=== PATIENT | female | born 1995 | race Asian ===

== ENCOUNTER 2020-07-07 18:00 | Emergency (ER) | payer SELFPAY ==
[~2020-07-07] VITALS: Ht 157.5 cm; Wt 56.7 kg
[2020-07-07] MEDS ORDERED: Solu-MEDROL 125mg Inj ONE (18:08)
[2020-07-07] MEDS ORDERED: DiphenhydrAMINE 50mg/ml Inj ONE (18:08)
[2020-07-07] MEDS ORDERED: EPINEPHrine 1mg/1ml Amp ONE (18:08)
[2020-07-07 18:15] VITALS: BP 122/62
[2020-07-07] MEDS ORDERED: EPINEPHrine 1mg/1ml Amp IM ONE (18:15)
[2020-07-07] MEDS ORDERED: Solu-MEDROL 125mg Inj IVP ONE (18:15)
[2020-07-07] MEDS ORDERED: DiphenhydrAMINE 50mg/ml Inj IVP ONE (18:15)
--- NOTE | 2020-07-07 18:15 | NUR ---
ED Nurse Note: Pt came to ED for allergic reaction. Pt had drank a Marijuana drink 30 minutes before coming to ED. Pt states she feels as is body is slightly swollen. O2 is 98% 4L, HR 98. Pt is alert and ox4, ambulatory but weak. IV est and meds administered.
--- NOTE | 2020-07-07 18:18 | Emergency Room Report ---
History of Present Illness General Chief Complaint: Allergic Reaction Source: Patient Present Illness HPI Disclaimer: Please note that this report is being documented using [employer] technology. This can lead to erroneous entry secondary to incorrect interpretation by the dictating instrument. HPI: 24-year-old female no reported past medical history presents ambulatory the ER due to possible allergic reaction. She states she took a "CBD hemp beverage" and shortly afterward developed some itching in her throat and skin. So she had a mild shortness of breath. No history of anaphylaxis or allergic reaction in the past. She denies any pain nausea or vomiting at this time. She took a Zyrtec prior to arrival. Allergies: Coded Allergies: No Known Allergies (Unverified , 07/07/20) COVID-19 Screening Contact w/high risk pt: No Experienced COVID-19 symptoms?: No COVID-19 Testing performed [employer]: No Patient History Last Menstrual Period: na Reviewed Nursing Documentation: PMH: Agreed; PSxH: Agreed Nursing Documentation-PMH Past Medical History: No Stated History Review of Systems All Other Systems: negative except mentioned in HPI Physical Exam Vital Signs Date Time Temp Pulse Resp B/P (MAP) Pulse Ox O2 Delivery O2 Flow Rate FiO2 07/07/20 18:02 98.4 89 20 107/63 (78) 85 Room Air Sp02 EP Interpretation: reviewed, normal General Appearance: well appearing, no apparent distress Head: normocephalic, atraumatic Eyes: bilateral eye PERRL, bilateral eye EOMI ENT: hearing grossly normal, moist mucus membranes, other - No oral edema noted Neck: full range of motion, supple Respiratory: lungs clear, normal breath sounds, no rhonchi, no respiratory distress, no retraction, no wheezing Cardiovascular #1: normal peripheral pulses, regular rate, rhythm, no murmur Gastrointestinal: non tender, soft, non-distended, no guarding Neurologic: alert, oriented x3, no focal defects Skin: warm/dry, other - Patient appears erythematous no obvious urticaria Procedures Critical Care Time Critical Care Time Critical care is made on the patient due to presentation with anaphylactic reaction requiring my acute intervention. Critical care time is 36 minutes and excludes procedures. Medical Decision Making Diagnostic Impression: Primary Impression: Anaphylactic reaction ER Course MDM: Anaphylaxis, food intolerance to name a few. Clinical course-patient was initially hypoxic. Epinephrine Benadryl and Solu- Medrol ordered. After epinephrine Solu-Medrol and Benadryl patient observed for 2 hours with no recurrent symptoms. Vital signs stable. She was in no distress. Denied shortness of breath or throat tightness. Will be discharged home on prednisone, antihistamines and EpiPen as needed. Given return precautions. Last Vital Signs Date Time Temp Pulse Resp B/P (MAP) Pulse Ox O2 Delivery O2 Flow Rate FiO2 07/07/20 18:02 98.4 89 20 107/63 (78) 85 Room Air Status: improved Disposition: HOME, SELF-CARE Condition: Improved Scripts Epinephrine (Epipen 2-Bowen) 0.3 Mg/0.3 Ml Auto.injct 0.3 MG IM PRN PRN for allergic reaction, #1 EA Prov: Tyron Brown M.D. 07/07/20 Cetirizine Hcl* (ZYRTEC*) 10 Mg Tablet 10 MG ORAL DAILY, #10 TAB 0 Refills Prov: Tyron Brown M.D. 07/07/20 Prednisone* (PREDNISONE*) 20 Mg Tablet 40 MG ORAL DAILY, #8 TAB Prov: Tyron Brown M.D. 07/07/20 Tyron Brown M.D. Jul 07, 2020 18:18
--- NOTE | 2020-07-07 18:25 | NUR ---
Note abdelrahmanone in EDM - 07/07/20 at 1859 by ROMA ED Nurse Note: Pt came to ED for allergic reaction. Pt had drank a Marijuana drink 30 minutes before coming to ED. Pt states she feels as is body is slightly swollen. O2 is 100% RA, HR 98. Pt is alert and ox4, ambulatory but weak. IV est and meds administered.
[2020-07-07 19:00] VITALS: BP 108/80
--- NOTE | 2020-07-07 19:05 | NUR ---
ED Nurse Note: Recieved report from am nurse to resume care, pt in bed awake and alert, on cardiac monitoring, no s/s of respirtory distress, v/s stable, has patent saline lock, rayna resume care and continue to closely monitor.
[2020-07-07] MEDS ORDERED: PREDNISONE20 MG ORAL (19:17)
[2020-07-07] MEDS ORDERED: ZYRTEC10 MG ORAL (19:17)
[2020-07-07] MEDS ORDERED: EPIPEN 2-P0.3 MG/0.3 IM (19:17)
[2020-07-07 20:00] VITALS: BP 110/84
--- NOTE | 2020-07-07 20:00 | NUR ---
ER DISCHARGE NOTE: Patient is cleared to be discharged per ERMD, pt is aox4, on room air, with stable vital signs. pt was given dc and prescription instructions, pt was able to verbalize understanding, pt id band and iv site removed without complications. pt is able to ambulate with steady gait. pt took all belongings.
[2020-07-07 20:05] VITALS: BP 108/80
== END 2020-07-07 20:05 | disposition home or self-care (01) ==
LOC: EMR 18:26
DX: T78.2XXA Anaphylactic shock, unspecified, initial encounter (principal); R09.02 Hypoxemia
CPT/HCPCS: 96372; 96374; 96375; 99291; J0171; J1200; J2930